=== PATIENT | female | born 1975 | race Caucasian/White ===

== ENCOUNTER 2022-05-19 11:15 | Outpatient (CLI) | payer BC, SELFPAY ==
--- NOTE | 2022-05-19 | DI.MRI_ITS ---
Exam(s) MR LUMBAR SPINE WO EXAM: MR LUMBAR SPINE WO CLINICAL HISTORY: LUMBAR RADICULOPATHY,M54.16,SEGMENTAL DYSFUNCTION LS SPINE. TECHNIQUE: Multiplanar multisequence MRI of the Lumbar spine was performed. COMPARISON: No exams were available for comparison FINDINGS: Bones: The last intervertebral disc space is designated the L5/S1 level for the numbering purpose of this examination. The vertebral body heights are well maintained. Alignment is satisfactory. The ma rrow signal characteristics are unremarkable. Cord: The conus tip ends at the T12 level. It is of normal size and signal intensity. T12-L1: No disc herniations or bulges are present. No central spinal canal or neural foraminal stenos is. L1-2: No disc herniations or bulges are present. No central spinal canal or neural foraminal stenosis . L2-3: Minimal disc bulging. Mild facet degenerative changes. No central spinal canal or neural fora julia stenosis. L3-4: Minimal disc bulging. Mild facet degenerative changes and ligamentous hypertrophy. No central spinal canal or neural foraminal stenosis. L4-5: Mild disc bulging. Facet degenerative changes and ligamentous hypertrophy cause mild central c anal stenosis. No neural foraminal stenosis. L5-S1: No disc herniations or bulges are present. No central spinal canal or neural foraminal stenosi s. The visualized SI joints and sacrum are well maintained. Soft tissues: The paraspinal soft tissues are unremarkable. IMPRESSION: Mild disc bulging. Facet degenerative changes and ligamentous hypertrophy create mild central canal stenosis at L4-5. DATA REPOSITORY:
== END 2022-05-19 11:35 ==
PROVIDERS: Visit Provider Chiropractor
DX: M54.16 Radiculopathy, lumbar region (principal); M51.16 Intervertebral disc disorders with radiculopathy, lumbar region; M47.26 Other spondylosis with radiculopathy, lumbar region
CPT/HCPCS: 72148

== ENCOUNTER 2022-08-14 09:15 | Outpatient (CLI) | payer BC, SELFPAY ==
[2022-08-14 09:24] VITALS: BP 111/74; PULSE 90; RESP 20; TEMP 36.7; O2SAT 100
--- NOTE | 2022-08-14 10:00 | DI.RAD_ITS ---
Exam(s) XR PAIN CLINIC LUMBAR SP 2V EXAM: XR PAIN CLINIC LUMBAR SP 2V CLINICAL HISTORY: Dx: Lumbar Radiculopathy TECHNIQUE: 2D and realtime digital imaging was performed. Radiologist not present. CONTRAST MATERIAL: None. COMPARISON: No exams were available for comparison FINDINGS: Fluoroscopy was provided for pain management therapy. Please refer to procedure report or details. Radiation Exposure Index: Ka,r=14.10 mGy IMPRESSION: As above. RADIATION DOSE DELIVERED:
--- NOTE | 2022-08-14 10:08 | PDOC.PAIN_ITS ---
Date of service: 08/14/22 Time of Service: 10:08 Pain Managment Procedure Note Procedure Note Procedure Note: LUMBAR / SACRAL TRANSFORAMINAL INJECTION Jesica Elliott has been referred to the [facility] for a transforaminal nerve root block and steroid injection. COMMENTS: She had a direct referral for a right L5 transforaminal epidural steroid injection from her spine surgery office ([facility]) for this procedure. She has pain radiating down the right L5 dermatome. Dx: Lumbosacral radiculopathy Pre-procedure pain VAS was 4/10 Patient was interviewed and the medical record reviewed. There were no medical, pharmacologic, radiographic or other structural contraindications to attempting fluoroscopically guided transforaminal nerve root block and epidural steroid injection. Risks and expected side effects as well as potential benefit of the procedure were reviewed and voiced concerns addressed. The printed consent form was signed and witnessed. Standard time-out procedure was performed. Patient was placed in the prone position on the fluoroscopy table and automated blood pressure cuff and pulse oximeter applied. Fluoroscopy was utilized to identify the right L5 neural foramen between L5 and S1 . A skin gabriela was made for the needle insertion site. A Chlorhexadine prep was carried out, and sterile drapes were applied. Local anesthesia was achieved in the skin and subcutaneous tissues. A 22 gauge curved tip spinal needle was then inserted, advanced with fluoroscopic guidance into the neural foramen, confirmed on the lateral view. After negative aspiration, 2 ml of Omnipaque 240 was injected confirming position in A/P and lateral views. This showed a good spread of dye transforaminally into the epidural space. There was no vascular update with contrast injection under continuous fluoroscopy and digital substraction. 15 mg of Dexamethasone was injected, followed by 0.5 ml of 1% Xylocaine flush for the nerve root block, as well. There was no unusual discomfort expressed.The needle was withdrawn. The patient tolerated the procedure well. A Band-Aid was applied. Vital signs were stable throughout the procedure and were as recorded in nursing records. If given, dosages of intravenous drugs for anxiolysis and analgesia were documented in nursing records. Follow up plans and appointments were discussed. Post procedure instruction was given as documented in nursing records and patient was discharged in the care of an identified regional owner operator truck driver. COMMENTS:Post-procedure pain VAS was 4/10. If this procedure is helpful (at least 50% improvement in pain and/or function for at least 3 months), it can be repeated. Raul Britton DO, MPH [facility] CC:
[2022-08-14] MEDS: Omnipaque 240 MG/ML 50 ML BTL IJ (10:14)
[2022-08-14] MEDS: Dexamethasone Sod. Phos./Pres-Free 10 MG/ML VIAL IJ (10:14)
[2022-08-14 10:23] VITALS: BP 129/66; PULSE 91; RESP 19; O2SAT 97
== END 2022-08-14 09:16 | disposition home or self-care (01) ==
LOC: PC 09:15
PROVIDERS: Visit Provider Preventive Medicine Occupational Medicine
DX: M54.17 Radiculopathy, lumbosacral region (principal)
CPT/HCPCS: 64483; 72100; Q9967